=== PATIENT | female | born 1970 | race Caucasian/White ===

== ENCOUNTER 2018-12-25 13:30 | Emergency (ER) | payer BC ==
[~2018-12-25] VITALS: Ht 149.9 cm; Wt 47.6 kg
[2018-12-25 13:45] VITALS: BP 153/96
--- NOTE | 2018-12-25 13:57 | NUR ---
48/F BIB SELF c/o high blood pressure, throat discomfort, and blurred vision x 3 days. denies N/V/D OR injury/trauma. PATIENT STATES PAIN OF 5/10 AT THIS TIME. PATIENT POSITIONED FOR COMFORT; HOB ELEVATED; BEDRAILS UP X2; BED DOWN. ER MD MADE AWARE OF PT STATUS.
--- NOTE | 2018-12-25 14:12 | NUR ---
Patient appears to be resting comfortably in bed. BP138/93, P80/MINS,Respirations even and unlabored.WILL CONTINUE TO MONITOR.
[2018-12-25] MEDS ORDERED: KETOROLAC 30 MG/ML VIAL IVP ONE (14:30)
[2018-12-25] MEDS ORDERED: LORazepam 2 MG/ML VIAL IVP ONE (14:30)
[2018-12-25] MEDS ORDERED: SERT100T PO (14:32)
[2018-12-25] MEDS ORDERED: KETOROLAC 30 MG/ML VIAL ONE (14:46)
[2018-12-25] MEDS ORDERED: LORazepam 2 MG/ML VIAL ONE (14:46)
[2018-12-25 14:59] LABS: BASOPHILS % (AUTO) 0.4 % (0.0-2.0); EOSINOPHILS # (AUTO) 0.1 K/uL (0-0.4); EOSINOPHILS % (AUTO) 2.2 % (0.0-4.0); HEMATOCRIT 44.7 % (36-48); HEMOGLOBIN 14.9 g/dL (12.0-16.0); LYMPHOCYTES # (AUTO) 2.3 K/uL (2.5-16.5); LYMPHOCYTES % (AUTO) 36.5 % (20.5-51.1); MEAN CORPUSCULAR HEMOGLOBIN 33 pg (27-31); MEAN CORPUSCULAR HGB CONC 33 g/dL (33-37); MONOCYTES # (AUTO) 0.6 K/uL (0.8-1.0); NEUTROPHILS # (AUTO) 3.2 K/uL (1.8-7.7); NEUTROPHILS % (AUTO) 50.9 % (42.2-75.2); PLATELET COUNT (AUTO) 262 K/uL (140-450); RED BLOOD CELL COUNT(AUTO) 4.56 MIL/uL (4.20-5.40); RED CELL DISTRIBUTION WIDTH 12.8 % (11.6-13.7); WHITE BLOOD COUNT (AUTO) 6.2 K/uL (4.8-10.8)
[2018-12-25 15:22] LABS: D-DIMER < 100 ng/ml (0-400)
[2018-12-25 15:33] LABS: APPEARANCE,URINE CLEAR (CLEAR); BILIRUBIN,URINE NEGATIVE (NEGATIVE); BLOOD, URINE NEGATIVE (NEGATIVE); COLOR,URINE YELLOW (YELLOW); LEUKOCYTE ESTERASE ,URINE NEGATIVE (NEGATIVE); NITRITE, URINE NEGATIVE (NEGATIVE); UGLUCOSE NEGATIVE (NEGATIVE)
[2018-12-25 15:36] LABS: BARBITURATE, URINE NEG. ng/ml (NEG <=200); BENZODIAZEPINE, URINE NEG. ng/mL (NEG <=200); CANNABINOID, URINE POS. ng/mL (NEG <=50); COCAINE, URINE NEG. ng/mL (NEG <=300); OPIATE, URINE NEG. ng/mL (NEG <=2000); PHENCYCLIDINE SCREEN,URINE NEG. ng/mL (NEG <=25)
[2018-12-25 16:14] LABS: ANION GAP 9.3 (8-16); CARBON DIOXIDE 28.4 mmol/L (21-32); CREATININE 0.6 mg/dL (0.6-1.3); POTASSIUM 3.7 mmol/L (3.5-5.1)
--- NOTE | 2018-12-25 16:19 | NUR ---
Patient appears to be SLEEPING comfortably in bed. Vital Signs within normal limits. Respirations even and unlabored.WILL CONTINUE TO MONITOR.
[2018-12-25 16:20] LABS: ALBUMIN 3.5 g/dL (3.4-5.0); TOTAL BILIRUBIN 0.3 mg/dL (0.0-1.0)
[2018-12-25 16:30] LABS: PROTHROMBIN TIME 9.7 secs (10.8-13.4)
[2018-12-25 17:14] LABS: MAGNESIUM 1.8 mg/dL (1.8-2.4)
[2018-12-25 17:15] LABS: FREE T4 (FREE THYROXINE) 0.63 ng/dL (0.76-1.46); THYROID STIMULATING HORMONE 4.98 uIU/mL (0.34-3.74)
[2018-12-25 17:28] VITALS: BP 119/82
--- NOTE | 2018-12-25 17:28 | NUR ---
Patient discharged with v/s stable. Written and verbal after care instructions given and explained. Patient verbalized understanding. Ambulatory with steady gait. All questions addressed prior to discharge. Advised to follow up with PMD.
== END 2018-12-25 17:28 | disposition home or self-care (01) ==
LOC: MED 13:30
DX: F41.9 Anxiety disorder, unspecified (principal); R07.89 Other chest pain; R07.0 Pain in throat; E03.9 Hypothyroidism, unspecified; F48.9 Nonpsychotic mental disorder, unspecified
CPT/HCPCS: 36415; 36600; 71045; 80053; 80305; 81003; 81025; 82550; 82803; 83735; 83880; 84439; 84443; 84479; 84484; 85025; 85379; 85610; 85730; 93005; 96374; 96375; 99284; G0482; J1885; J2060; Q0092